=== PATIENT | male | born 1950 | race Caucasian/White ===

== ENCOUNTER → 2020-09-06 | Outpatient (CLI) | payer OTHER | LOC: SJCVC 10:24 | PROVIDERS: ATTEND Internal Medicine | DX: I10 Essential (primary) hypertension (principal); E78.5 Hyperlipidemia, unspecified; J44.9 Chronic obstructive pulmonary disease, unspecified; Z79.82 Long term (current) use of aspirin; Z87.891 Personal history of nicotine dependence; Z86.73 Personal history of transient ischemic attack (TIA), and cerebral infarction without residual deficits; Z79.899 Other long term (current) drug therapy ==

== ENCOUNTER → 2021-03-13 | Outpatient (CLI) | payer OTHER ==
[2021-03-13 12:07] VITALS: BP 154/76
--- NOTE | 2021-03-14 16:40 | LINQ ---
[facility] [place] [address] LINQ PROCEDURE REPORT Name: NIKOLAYKEITH Trujillo Room #: REG MALATHI Parra#: [id number] Admission: 03/13/21 Attend Phys: Michael Mays Discharge: Date of : 48 Report #: [id number] THIS REPORT FOR: cc: Jose Valentin James L. DO Lammoglia, Francisco J. MD ~ APPROVED REPORT Patient Location: Out-Patient Room #: Stress Nurse: LINQ Implant Model# [id number] Serial #[id number] [employer]: [employer] Implant Date: 03/13/2021 Placement: L Pect SQ Status: Implant VT: 330ms 16 beats ASHLEIGH: 2000 ms 8 beats Asystole: 3/0s Indications: Cryptic stroke Brief description procedure: After informed consent was obtained the patient was brought to the cardiac catheterization prepped and hold. The left chest was prepped in usual sterile manner. Lidocaine 1% lidocaine a wheal was raised and subsequent the infiltrated the incision site. Utilizing a spinal needle a tract was anesthetized with 1% lidocaine along the proposed tract. Using 11 blade a small incision was made. Utilizing both sharp and blunt dissection a deployment tract was developed and utilizing the deployment tool the device was delivered. Subcutaneous tissue was closed with 2 simple interrupted stitches and the skin was closed with 3-0 Vicryl subcuticular. Dermabond Steri-Strips 4 x 4 OpSite were utilized. Patient tolerated procedure well and there were no complications. Recorded P wave was satisfactory within range Conclusion [facility] [address] [address] LINQ PROCEDURE REPORT Name: NIKOLAYKEITH R Room #: REG [facility]#: [id number] Admission: 03/13/21 Attend Phys: Michael Miranda Discharge: Date of : 48 Report #: [id number] 1. Successful insertion of an implantable loop recorder 2. Proceed with routine postimplantation protocol <ELECTRONICALLY SIGNED> By: Michael Mays MD 03/14/21 1640 1640 1640 Michael Mays MD /INF
== END | disposition home or self-care (01) ==
LOC: CATH 08:07
PROVIDERS: ATTEND Internal Medicine
DX: I63.9 Cerebral infarction, unspecified (principal)